=== PATIENT | male | born 1935 | race Caucasian/White ===

== ENCOUNTER → 2019-02-17 | Outpatient (CLI) | payer OTHER ==
[~2019-02-17] MED LIST: ASCO500 PO; ASPI81CH PO; BRINOPSU; CALCIUM 600 +1 EA11 PO; CEPH500 PO; CLON.5 PO; CLOP75 PO; EZET10 PO; FLUO20 PO; Ferrousul325 MG PO; Garlic1 EAC1 PO; HYDACE5 PO; LIVALO4 MG PO; MELATONIN10 M2 PO; METO25ER PO; NAPR220 PO; OXYACE7.5T PO; Ocuvite Softge1 EAC1 PO; PYRI100 PO; Prozac20 MG PO; UNK CHOLESTEROL MED; VITAMIN B-121000 MC2 PO; VITAMIN D31000 UNI1 PO
== END | disposition home or self-care (01) ==
LOC: LAB SHORT 14:09 → LAB 14:09 → PLD 14:09
DX: L82.0 Inflamed seborrheic keratosis (principal); L28.0 Lichen simplex chronicus
CPT/HCPCS: 88305

== ENCOUNTER 2019-05-05 07:55 | Day surgery (SDC) | payer OTHER ==
[~2019-05-05] VITALS: Ht 180.3 cm; Wt 83.3 kg
[~2019-05-05 07:55] MED LIST changes: -CALCIUM 600 +1 EA11 PO; -Ferrousul325 MG PO; -Garlic1 EAC1 PO; -MELATONIN10 M2 PO; -NAPR220 PO; -PYRI100 PO; -VITAMIN B-121000 MC2 PO; -VITAMIN D31000 UNI1 PO
[2019-05-05] MEDS ORDERED: NAPR220 PO (08:46)
[2019-05-05] MEDS ORDERED: CALCIUM 600 +1 EA11 PO (08:49)
[2019-05-05] MEDS ORDERED: Garlic1 EAC1 PO (08:49)
[2019-05-05] MEDS ORDERED: VITAMIN B-121000 MC2 PO (08:50)
[2019-05-05] MEDS ORDERED: VITAMIN D31000 UNI1 PO (08:50)
[2019-05-05] MEDS ORDERED: PYRI100 PO (08:50)
[2019-05-05] MEDS ORDERED: Ferrousul325 MG PO (08:51)
[2019-05-05] MEDS ORDERED: MELATONIN10 M2 PO (08:52)
--- NOTE | 2019-05-05 10:18 | NUR ---
05/05/19 1018 Ailyn Kilpatrick PATIENT REFUSED MULTIPLE OFFERS OF PO FLUIDS.
== END 2019-05-05 10:19 | disposition home or self-care (01) ==
LOC: ORSCSDS 07:55
PROVIDERS: Surgery
PROC: 0DBH8ZX Excision of Cecum, Via Natural or Artificial Opening Endoscopic, Diagnostic (ICD-10-PCS; principal; 2019-05-05 09:30)
DX: Z12.11 Encounter for screening for malignant neoplasm of colon (principal); Z86.010 Personal history of colon polyps; D12.0 Benign neoplasm of cecum; K57.30 Diverticulosis of large intestine without perforation or abscess without bleeding; I10 Essential (primary) hypertension; I25.2 Old myocardial infarction; I25.10 Atherosclerotic heart disease of native coronary artery without angina pectoris; Z87.891 Personal history of nicotine dependence; Z79.899 Other long term (current) drug therapy; Z79.82 Long term (current) use of aspirin
CPT/HCPCS: 88305; J2370; J2704; J7120

== ENCOUNTER 2020-06-10 05:38 | Day surgery (SDC) | payer OTHER ==
[~2020-06-10] VITALS: Ht 177.8 cm; Wt 85.0 kg
[~2020-06-10 05:38] MED LIST changes: +ASPIR 8181 M1 PO; +ATORVASTATIN CA10 M1 PO; +CALCIUM 600 +1 EA11 PO; +Ferrousul325 MG PO; +Garlic1 EAC1 PO; +ICAP PO; +MELATONIN10 M2 PO; +NAPR220 PO; +PYRI100 PO; +Prinivil10 MG PO; +VITAMIN D31000 UNI1 PO; +Vitamin B-121000 MCG PO
[2020-06-10] MEDS ORDERED: MECL12.5 PO (10:03)
--- NOTE | 2020-06-10 18:33 | NUR ---
SHIFT SUMMARY ASSUMED CARE FOLLOWING PACEMAKER PLACEMENT. LEFT ARM SLING IN PLACE, DRESSING TO LEFT CHEST WALL CLEAN DRY AND INTACT. VSS, A/A/OX4, NO ACUTE MEDICAL CHANGES, WILL CONTINUE TO MONITOR AND TREAT UNTIL CHANGE OF SHIFT.
--- NOTE | 2020-06-11 06:30 | NUR ---
SHIFT SUMMARY PT STABLE AND COMFORTABLE AT SHIFT CHANGE. INCISION SITE COVERED WITH SURGICAL DRESSING, DRESSING CDI, NO DRAINAGE, WNL. PT REPORTED ONLY MINIMAL DISCOMFORT T/O THE NIGHT AND SLEPT MOST OF THE SHIFT. HR IN THE 60-70'S, BP UP TO 162/81, CAME BACK DOWN TO 140'S SYSTOLIC. TEMP HIGH OF 98.4, O2 SATS IN 90'S ON ROOM AIR WITH RESPERATIONS WNL. PT HAD VERY QUIET UNEVENTFUL NIGHT. WILL CONTINUE TO MONITOR UNTIL SHIFT CHANGE.
== END 2020-06-11 11:44 | disposition home or self-care (01) ==
LOC: MHTC 05:38 → PCU 09:40 → MHTC 06-11 11:44
DX: I49.5 Sick sinus syndrome (principal); I44.0 Atrioventricular block, first degree; E78.00 Pure hypercholesterolemia, unspecified; I10 Essential (primary) hypertension; I25.2 Old myocardial infarction; Z87.891 Personal history of nicotine dependence; I25.10 Atherosclerotic heart disease of native coronary artery without angina pectoris; Z88.5 Allergy status to narcotic agent; Z88.6 Allergy status to analgesic agent; Z88.8 Allergy status to other drugs, medicaments and biological substances
CPT/HCPCS: 33208; 71045; 71046; 76937; 99152; 99153; A9270; C1781; C1785; C1894; C1898; J0690; J1644; J2250; J3010; J7030; J7040